=== PATIENT | male | born 1955 | race Caucasian/White ===

== ENCOUNTER 2025-03-06 16:44 | Emergency (ER) | payer MEDICARE, BC ==
[~2025-03-06] VITALS: Ht 185.4 cm; Wt 98.9 kg
[2025-03-06] MEDS: LIDOCAINE 1% MDV 20 ML VIAL IM ONE (18:30)
[2025-03-06] MEDS: NEOSPORIN TOP OINT 15 GM TOP ONE (20:30)
[2025-03-06 20:55] VITALS: BP 149/73; TEMP 97.9; O2SAT 98
== END 2025-03-06 20:56 | disposition home or self-care (01) ==
LOC: M ED 16:44
DX: S61.211A Laceration without foreign body of left index finger without damage to nail, initial encounter (principal); S61.214A Laceration without foreign body of right ring finger without damage to nail, initial encounter; W31.2XXA Contact with powered woodworking and forming machines, initial encounter; Y92.009 Unspecified place in unspecified non-institutional (private) residence as the place of occurrence of the external cause; Y93.9 Activity, unspecified; Y99.9 Unspecified external cause status; E11.9 Type 2 diabetes mellitus without complications; I10 Essential (primary) hypertension